=== PATIENT | female | born 1970 | race Asian ===

== ENCOUNTER 2021-05-25 08:27 | Emergency (ER) | payer OTHER ==
[~2021-05-25] VITALS: Ht 152.4 cm; Wt 49.9 kg
[2021-05-25 09:11] LABS: Basophils # (auto) 0 10 ^3/uL (0-0.2); Basophils % (auto) 0.5 % (0.0-2.0); Eosinophils # (auto) 0.1 10 ^3/uL (0-0.8); Eosinophils % (auto) 2.7 % (0.0-7.0); Hematocrit 42.7 % (36.0-46.0); Hemoglobin 14.9 g/dL (12.2-16.2); Lymphocytes # (auto) 1.5 10 ^3/uL (0.4-5.4); Mean Corpuscular Hemoglobin 31.1 pg (28.0-32.0); Mean Corpuscular Volume 88.8 fL (80.0-100.0); Monocytes # (auto) 0.3 10 ^3/uL (0-1.3); Monocytes % (auto) 7.3 % (0.0-12.0); Neutrophils # (auto) 2.1 10 ^3/uL (1.6-8.6); Neutrophils % (auto) 51.5 % (37.0-80.0); Red Cell Distribution Width 12.5 % (11.8-14.3)
[2021-05-25 09:32] LABS: Albumin 3.7 g/dL (3.4-5.0); BUN/Creatinine Ratio 17.3; Calcium 8.7 mg/dL (8.5-10.1); Potassium 3.9 mmol/L (3.5-5.1)
[2021-05-25 09:37] LABS: Total Protein 7.2 g/dL (6.4-8.2)
[2021-05-25 10:55] LABS: Urine Bacteria FEW /hpf (None Seen); Urine Blood Negative /uL (Negative); Urine Specific Gravity 1.015 (1.001-1.035); Urine WBC 45 /hpf (0 - 5)
[2021-05-25 11:30] VITALS: BP 125/73
[2021-05-25] MEDS ORDERED: NITR-87 PO (12:49)
== END 2021-05-25 13:42 | disposition home or self-care (01) ==
LOC: ER 08:27
DX: N39.0 Urinary tract infection, site not specified (principal); F41.9 Anxiety disorder, unspecified
CPT/HCPCS: 36415; 71045; 80053; 81001; 83880; 84484; 85025; 93005

== ENCOUNTER 2025-02-13 08:20 | Inpatient (IN) | payer OTHER ==
[~2025-02-13] VITALS: Ht 152.4 cm; Wt 50.2 kg
[~2025-02-13 08:20] MED LIST: NITR-87 PO
--- NOTE | 2025-02-13 09:36 | ED.PDOC ---
History of Present Illness HPI Comments 55-year-old female BIBA with the chief complaint of N/V. Patient has a sudden onset of nausea and vomiting and dizziness with the moving this morning and when EMS arrived on scene the patient was given 4 mg of Zofran via IV. EMS state that the patient had one episode of emesis in route. Patient has a poor historian. Denies any other symptoms at this time. Denies chills, fever, /D, SOB, CP. No other associated symptoms, modifiers, recent injuries or sick contacts present at this time. 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: 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 History Family History Family History: Reviewed,noncontributory to illness, Unknown Social History Smoker: Non-Smoker Alcohol: Denies ETOH Use Drugs: Denies Drug Use Lives In: Home Constitutional: denies: chills, diaphoresis, fatigue, fever, malaise, sweats, weakness, others EENTM: denies: blurred vision, double vision, ear bleeding, ear discharge, ear drainage, ear pain, ear ringing, eye pain, eye redness, hearing loss, mouth pain, mouth swelling, nasal discharge, nose bleeding, nose congestion, nose pain, photophobia, tearing, throat pain, throat swelling, voice changes, others Respiratory: denies: cough, hemoptysis, orthopnea, SOB at rest, shortness of breath, SOB with excertion, stridor, wheezing, others Cardiovascular: denies: chest pain, dizzy spells, diaphoresis, Dyspnea on exertion, edema, irregular heart beat, left arm pain, lightheadedness, palpitations, PND, syncope, others Gastrointestinal: reports: nausea, vomiting; denies: abdomen distended, abdominal pain, blood streaked bowels, constipated, diarrhea, dysphagia, difficulty swallowing, hematemesis, melena, poor appetite, poor fluid intake, rectal bleeding, rectal pain, others Genitourinary: denies: abnormal vagina bleeding, burning, dyspareunia, dysuria, flank pain, frequency, hematuria, incontinence, pain, , vagina discharge, urgency, others Neurological: reports: dizziness; denies: fainting, headache, left sided numbness, left sided weakness, numbness, paresthesia, pre-existing deficit, right sided numbness, right sided weakness, seizure, speech problems, tingling, tremors, weakness, others Musculoskeletal: denies: back pain, gout, joint pain, joint swelling, muscle pain, muscle stiffness, neck pain, others Integumetry: denies: bruises, change in color, change in hair/nails, dryness, laceration, lesions, lumps, rash, wounds, others Allergic/Immunocompromised: denies: Difficulty Healing, Frequent Infections, Hives, Itching, others Hematologic/Lymphatic: denies: anemia, blood clots, easy bleeding, easy bruising, swollen glands, others Endocrine: denies: excessive hunger, excessive sweating, excessive thirst, excessive urination, flushing, intolerance to cold, intolerance to heat, unexplained weight gain, unexplained weight loss, others Psychiatric: denies: anxiety, bipolar disorder, depression, hopeless, panic disorder, schizophrenia, sleepless, suicidal, others All Other Systems: Reviewed and Negative Physical Exam Exam Comments Appears uncomfortable General Appearance: No Apparent Distress, Normal HEENT: Normal ENT Inspection, Pharynx Normal, TMs Normal Neck: Full Range of Motion, Non-Tender, Normal, Normal Inspection Respiratory: Chest Non-Tender, Lungs Clear, No Accessory Muscle Use, No Respiratory Distress, Normal Breath Sounds Cardiovascular: No Edema, No JVD, No Murmur, No Gallop, Normal Peripheral Pulses, Regular Rate/Rhythm Breast Exam: Deferred Gastrointestinal: No Organomegaly, Non Tender, No Pulsatile Mass, Normal Bowel Sounds, Soft Genitalia: Deferred Pelvic: Deferred Rectal: Deferred Extremities: No calf tenderness, Normal capillary refill, Normal inspection, Normal range of motion, Non-tender, No pedal edema Musculoskeletal : Apperance: Normal Neurologic: Alert, label drier II-XII nml as Tested, No Motor Deficits, Normal Affect, Normal Mood, No Sensory Deficits Cerebellar Function: Normal Reflexes: Normal Skin: Dry, Normal Color, Warm Lymphatic: No Adenopathy Was a procedure done? Was a procedure done?: No EKG EKG : Pulse Rate (adult): 60 Peck: Normal Cardiac Rhythm: NSR Block: None Hypertrophy: None ST: Normal Differential Dx Considerations may include: ACS, CVA, viral syndrome, electrolyte abnormalities, infectious etiology, acute appendicitis, gastritis X-Ray, Labs, Meds, VS Vital Signs Date Time Temp Pulse Resp B/P (MAP) Pulse Ox O2 Delivery O2 Flow Rate FiO2 02/13/25 11:07 98.2 63 16 110/64 (79) 98 98.2 02/13/25 10:20 60 02/13/25 09:36 60 02/13/25 09:20 60 02/13/25 09:03 62 18 99 Room Air 02/13/25 09:03 97.7 62 18 127/74 (91) 99 97.7 02/13/25 08:25 98.2 63 16 153/67 97 98.2 Lab Test 02/13/25 09:49 Range/Units White Blood Count 9.7 4.4-10.8 10^3/uL Red Blood Count 4.71 4.0-5.20 10^6/uL Hemoglobin 14.5 12.2-16.2 g/dL Hematocrit 42.5 36.0-46.0 % Mean Corpuscular Volume 90.2 80.0-100.0 fL Mean Corpuscular Hemoglobin 30.7 28.0-32.0 pg Mean Corpuscular Hemoglobin Concent 34.1 32.0-36.0 g/dL Red Cell Distribution Width 12.8 11.8-14.3 % Platelet Count 230 140-450 10^3/uL Mean Platelet Volume 8.0 6.9-10.8 fL Neutrophils (%) (Auto) 87.0 H 37.0-80.0 % Lymphocytes (%) (Auto) 10.3 10.0-50.0 % Monocytes (%) (Auto) 2.2 0.0-12.0 % Eosinophils (%) (Auto) 0.1 0.0-7.0 % Basophils (%) (Auto) 0.4 0.0-2.0 % Neutrophils # (Auto) 8.4 1.6-8.6 10 ^3/uL Lymphocytes # (Auto) 1.0 0.4-5.4 10 ^3/uL Monocytes # (Auto) 0.2 0-1.3 10 ^3/uL Eosinophils # (Auto) 0 0-0.8 10 ^3/uL Basophils # (Auto) 0 0-0.2 10 ^3/uL Nucleated Red Blood Cells 0.0 % Sodium Level 143 136-145 mmol/L Potassium Level 3.8 3.5-5.1 mmol/L Chloride Level 105 98-107 mmol/L Carbon Dioxide Level 27 20-31 mmol/L Anion Gap 11 5-15 Blood Urea Nitrogen 6 L 9-23 mg/dL Creatinine 0.75 0.550-1.02 mg/dL Glomerular Filtration Rate Calc 93 >90 mL/min BUN/Creatinine Ratio 8.0 L 10.0-20.0 Serum Glucose 122 H 74-106 mg/dL Lactic Acid Level 1.7 0.4-2.0 mmol/L Calcium Level 9.6 8.7-10.4 mg/dL Total Bilirubin 1.2 H 0.2-1.0 mg/dL Aspartate Amino Transferase (AST) 22 13-40 U/L Alanine Aminotransferase (ALT) 23 7-40 U/L Alkaline Phosphatase 100 46-116 U/L Troponin I High Sensitivity < 3 L </=34 ng/L Total Protein 7.5 5.7-8.2 g/dL Albumin 4.5 3.2-4.8 g/dL Lipase 32 12-53 U/L Time of 1ST Reevaluation: 10:00 Reevaluation 1ST: Unchanged Patient Education/Counseling: Diagnosis, Treatment, Prognosis Family Education/Counseling: No Family Present SEPSIS Sepsis Screen Date sepsis recognized/suspect: Feb 13, 2025 Time Sepsis recognized/suspect: 826 Recent Procedure: No On Antibiotic Therapy: No Respiratory Rate >20: No Heart Rate >90: No Temp<36 C (96.8 F) or >38.3 C: No SBP <90 or MAP <65 mmHG: No New Acute Mental Status Change: No Is the patient on CPAP, BIPAP,: No Physician Orders Urinalysis (02/13/25 08:58) Chest Portable (02/13/25 08:58) Blood Culture (02/13/25 08:58) Ct Ab Pel With Iv Con Only (02/13/25 08:58) Troponin-I Hs (02/13/25 09:58) Troponin-I Hs (02/13/25 11:58) Electrocardigram (02/13/25 11:58) Cefazolin Ancef (02/13/25 12:45) Metronidazole Ivpb Flagyl (02/13/25 12:45) Morphine Sulfate Injection (02/13/25 12:45) NS (02/13/25 12:45) Ondansetron Hcl (Zofran) (02/13/25 12:45) Vital Signs Date Time Temp Pulse Resp B/P (MAP) Pulse Ox O2 Delivery O2 Flow Rate FiO2 02/13/25 11:07 98.2 63 16 110/64 (79) 98 98.2 02/13/25 10:20 60 02/13/25 09:36 60 02/13/25 09:20 60 02/13/25 09:03 62 18 99 Room Air 02/13/25 09:03 97.7 62 18 127/74 (91) 99 97.7 02/13/25 08:25 98.2 63 16 153/67 97 98.2 Laboratory Tests Test 02/13/25 09:49 Lactic Acid Level 1.7 mmol/L (0.4-2.0) White Blood Count 9.7 10^3/uL (4.4-10.8) Departure 1 Departure Time of Disposition: 12:37 (Patient presented with abdominal pain that was concerning for possible appendicits, gastritis, cholecystitis, colitis, gastroenteritis, sbo, or orther possible surgical emergency. Data: 1. I ordered and reviewed the result of at least 3 labs including a CBC, BMP, and Urinalysis. 2. I independently interpreted the following tests: CT Abdomen and Pelvis is concerning for diffuse colitis .Risk:This patient has a high risk of morbidity due to further diagnostic testing or treatment and may suffer from an acute abdominal process disorder. Workup reveals diffuse colitis and patient should be admitted for further workup. and possible expert consultation. ) Impression: Primary Impression: Colitis Additional Impression: Intractable abdominal pain Disposition: ADMITTED INPATIENT Admit to: Med Surg Condition: Guarded Critical Care Note Critical Care Time?: Yes Critical care comment: Intractable abdominal pain Authorized and Performed by: Mina Centeno MD Total critical care time: Approximately 39 minutes Due to a high probability of clinically significant, life threatening deterioration, the patient required my highest level of preparedness to intervene emergently and I personally spent this critical care time directly and personally managing the patient. This critical care time included obtaining a history; examining the patient; pulse oximetry; ordering and review of studies; arranging urgent treatment with development of a management plan; evaluation of patient's response to treatment; frequent reassessment; and, discussions with other providers. This critical care time was performed to assess and manage the high probability of imminent, life-threatening deterioration that could result in multi-organ failure. It was exclusive of separately billable procedures and treating other patients and teaching time. Please see my other sections and the rest of the note for further information on patient assessment and treatment. Stability Stability form required: No I personally scribed for MINA CENTENO MD ([email or web address]) on 02/13/25 at 09:36. Electronically submitted by Braulio Church ([email or web address]). MINA CENTENO MD Feb 13, 2025 09:36
[2025-02-13] MEDS: IOHEXOL 300 MG/ML 100ML BOTTLE IJ ONE (10:19)
[2025-02-13 10:21] LABS: Hematocrit 42.5 % (36.0-46.0); Hemoglobin 14.5 g/dL (12.2-16.2); Mean Corpuscular Hemoglobin 30.7 pg (28.0-32.0); Mean Corpuscular Volume 90.2 fL (80.0-100.0); Nucleated Red Blood Cells % 0.0 %
--- NOTE | 2025-02-13 10:22 | ECG ---
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
[2025-02-13 10:54] LABS: Alanine Aminotransferase 23 U/L (7-40); Albumin 4.5 g/dL (3.2-4.8); Alkaline Phosphatase 100 U/L (46-116); Anion Gap 11 (5-15); BUN/Creatinine Ratio 8.0 (10.0-20.0); Calcium 9.6 mg/dL (8.7-10.4); Carbon Dioxide 27 mmol/L (20-31); Chloride 105 mmol/L (98-107); Potassium 3.8 mmol/L (3.5-5.1); Sodium 143 mmol/L (136-145); Total Protein 7.5 g/dL (5.7-8.2)
[2025-02-13 10:55] LABS: Bilirubin, Total 1.2 mg/dL (0.2-1.0)
[2025-02-13 10:57] LABS: Blood Urea Nitrogen 6 mg/dL (9-23); Glucose 122 mg/dL (74-106)
[2025-02-13 11:11] LABS: Lipase 32 U/L (12-53)
--- NOTE | 2025-02-13 11:59 | DVH ---
CLINICAL INFORMATION: Epigastric abdominal pain. TECHNIQUE: Axial CT images of the abdomen and pelvis were obtained after the uneventful administration of 100 mL Omnipaque 300 IV contrast. Coronal and sagittal reformatted images were obtained, reviewed, and stored. All CT scans at this medical facility are performed using dose modulation techniques as appropriate to a performed exam including the following: Automated exposure control was utilized; adjustment of the MA and/or KV according to patient size; and use of iterative reconstruction technique. CTDIvol = 6.05 mGy DLP = 323.71 mGy-cm COMPARISON: None FINDINGS: Lung bases: Atelectasis in the lung bases. Bilateral breast prostheses. Curvilinear density in the lateral aspect of the left breast prosthesis is of uncertain etiology, not well evaluated on CT. Liver: Hepatic steatosis. Biliary: Cholecystectomy. Common bile duct measures up to 0.9 cm, mildly dilated, although may be seen after cholecystectomy due to reservoir effect. Spleen: Unremarkable. Pancreas: Unremarkable. No inflammatory changes, ductal dilatation, or mass identified. Adrenal glands: Unremarkable. No mass. Kidneys: No hydronephrosis or mass. Aorta/Vascular: No aneurysm or significant calcification. Lymph Nodes: No mass or lymphadenopathy. Bowel/mesentery: No small bowel obstruction. No free air or free fluid. Appendix is visualized and appears unremarkable. There are areas of wall thickening and vascular engorgement throughout the colon, which may be seen with mild colitis in the appropriate clinical setting. No significant inflammatory stranding is seen. Moderate stool in the colon. Pelvic organs: Grossly unremarkable. Bladder: Unremarkable. No mass. Abdominal wall: No mass or hernia. Bones: No acute fracture or focal intraosseous lesion. IMPRESSION: 1. Areas of wall thickening and vascular engorgement are seen in the colon, which are nonspecific, but may be seen with mild colitis in the appropriate clinical setting. No significant inflammatory stranding is seen. Correlate with clinical findings. 2. Hepatic steatosis. 3. Mildly dilated common bile duct, although may be seen after cholecystectomy due to reservoir effect. Correlate with clinical findings. 4. Abnormal curvilinear densities in the lateral aspect of the left breast prosthesis, not well evaluated on CT. Correlate with clinical findings. If there is clinical concern for implant rupture, nonemergent MRI could be obtained. 5. Additional findings as described above.
--- NOTE | 2025-02-13 12:04 | DVH ---
CHEST RADIOGRAPH INDICATION: epigastric pain TECHNIQUE: Single frontal view of the chest was obtained COMPARISON: CHEST PORTABLE on DOS: 05/25/21, CXRP on DOS: 05/25/21 FINDINGS: Lines and Tubes: None Lungs: No focal consolidation. Pleura: No effusion. No pneumothorax. Cardiomediastinal contours: Unremarkable Bones: No acute osseous abnormality. IMPRESSION: 1. No acute cardiopulmonary disease.
--- NOTE | 2025-02-13 12:17 | ECG ---
[facility] Test Date: 2025-02-13 Test Time: 12:15:29 Pat Name: EL MALDONADO Department: ER Room: 0217 Gender: F Bond Clerk: BEATRICE : 1970 Requested By: MINA CRAIG Order Number: [id number] Reading MD: Marquez Olson Measurements Intervals [place] Rate: 62 P: 71 [place]: 142 QRS: 77 QRSD: 86 T: 80 QT: 601 QTc: 611 Interpretive Statements Sinus rhythm Nonspecific T abnormalities, lateral leads Prolonged QT interval Baseline wander in lead(s) I,III,aVL,V1,V2,V3,V4,V5,V6 Electronically Signed On 02-17-2025 8:35:47 PST by Marquez Olson Please click the below link to view image of tracing.
[2025-02-13] MEDS: ceFAZolin 2 GM/D5W50ml 50 ML IV ONE (13:07)
[2025-02-13] MEDS: SODIUM CHLORIDE 0.9% 1,000 ML IV ONE (13:07)
[2025-02-13] MEDS: ONDANSETRON HCL 4 MG/2 ML VIAL IV ONE (13:09)
[2025-02-13] MEDS: MORPHINE SULFATE 4 MG/ML SYR/VIAL IV ONE (13:14)
[2025-02-13] MEDS ORDERED: ACETAMINOPHEN 325 MG TAB PO PRN (13:15)
--- NOTE | 2025-02-13 13:16 | DVHHP2 ---
History of Present Illness Reason for Visit: Abdominal pain, nausea and vomiting History of Present Illness The patient is a 55-year-old female with past medical history significant for cholecystectomy who presents to the emergency department [facility] with left lower quadrant abdominal pain that began last night. The pain is associated with nausea and vomiting. She denies fever, hematemesis, constipation, diarrhea, melena, or hematochezia. In the ED, CT abdomen and pelvis demonstrates areas of colonic wall thickening and vascular engorgement, which are nonspecific but may be seen with mild colitis. Additional findings include hepatitis take steatosis and a mild dilated common bile duct, which may be expected post cholecystectomy. Laboratory evaluation shows a total bilirubin of 1.2 mg/dL Past Medical History As stated in HPI Past Surgical History Cholecystectomy Family History Reviewed, non-contributory to the management of this case. Past Social History The patient lives at home, denies smoking, alcohol or illicit drugs abuse. Review of Systems Constitutional: Yes: Malaise; No: Fever, Chills, Sweats, Weakness, Other Eyes: No: Pain, Vision change, Conjunctivae inflammation, Eyelid inflammation, Other, Redness ENT: No: Ear pain, Ear discharge, Nose pain, Nose discharge, Nose congestion, Mouth pain, Mouth swelling, Throat pain, Throat swelling, Other Respiratory: No: Cough, Dry, Shortness of breath, SOB with excertion, Wheezing, Hemoptysis, Pleuritic Pain, Sputum, Wheezing, Other Cardiovascular: No: Chest Pain, Palpitations, Orthopnea, Paroxysmal Noc. Dyspnea, Edema, Lt Headedness, Other Gastrointestinal: Nausea, Vomiting, Abdominal Pain; No: Diarrhea, Constipation, Melena, Hematochezia, Other Genitourinary: No Dysuria, No Frequency, No Incontinence, No Hematuria, No Retention, No Other Musculoskeletal: No: other, neck pain, shoulder pain, arm pain, back pain, hand pain, leg pain, foot pain Neurological: No: Weakness, Numbness, Incoordination, Change in speech, Confusion, Seizures, Other Allergies: Coded Allergies: NO KNOWN ALLERGIES (Unverified , 05/25/21) Exam Vital Signs Vital Signs Date Time Temp Pulse Resp B/P (MAP) Pulse Ox O2 Delivery O2 Flow Rate FiO2 02/13/25 13:14 68 19 112/64 02/13/25 11:07 98.2 98 98.2 02/13/25 09:03 Room Air General Appearance: Alert, Oriented X3, Cooperative, mild distress HEENT: PERRLA, EOMI Respiratory: Clear to auscultation, Normal air movement Cardiovascular: Regular rate, Normal S1, Normal S2 Abdominal: Normal bowel sounds, Soft, Other (Mild tenderness to left lower quadrant) Extremities: No clubbing, No cyanosis, No edema Skin: No rashes, No breakdown Neuro: Normal gait, Normal speech Labs/Xrays Labs Test 02/13/25 12:46 02/13/25 09:49 Range/Units White Blood Count 9.7 4.4-10.8 10^3/uL Red Blood Count 4.71 4.0-5.20 10^6/uL Hemoglobin 14.5 12.2-16.2 g/dL Hematocrit 42.5 36.0-46.0 % Mean Corpuscular Volume 90.2 80.0-100.0 fL Mean Corpuscular Hemoglobin 30.7 28.0-32.0 pg Mean Corpuscular Hemoglobin Concent 34.1 32.0-36.0 g/dL Red Cell Distribution Width 12.8 11.8-14.3 % Platelet Count 230 140-450 10^3/uL Mean Platelet Volume 8.0 6.9-10.8 fL Neutrophils (%) (Auto) 87.0 H 37.0-80.0 % Lymphocytes (%) (Auto) 10.3 10.0-50.0 % Monocytes (%) (Auto) 2.2 0.0-12.0 % Eosinophils (%) (Auto) 0.1 0.0-7.0 % Basophils (%) (Auto) 0.4 0.0-2.0 % Neutrophils # (Auto) 8.4 1.6-8.6 10 ^3/uL Lymphocytes # (Auto) 1.0 0.4-5.4 10 ^3/uL Monocytes # (Auto) 0.2 0-1.3 10 ^3/uL Eosinophils # (Auto) 0 0-0.8 10 ^3/uL Basophils # (Auto) 0 0-0.2 10 ^3/uL Nucleated Red Blood Cells 0.0 % Sodium Level 143 136-145 mmol/L Potassium Level 3.8 3.5-5.1 mmol/L Chloride Level 105 98-107 mmol/L Carbon Dioxide Level 27 20-31 mmol/L Anion Gap 11 5-15 Blood Urea Nitrogen 6 L 9-23 mg/dL Creatinine 0.75 0.550-1.02 mg/dL Glomerular Filtration Rate Calc 93 >90 mL/min BUN/Creatinine Ratio 8.0 L 10.0-20.0 Serum Glucose 122 H 74-106 mg/dL Lactic Acid Level 1.7 0.4-2.0 mmol/L Calcium Level 9.6 8.7-10.4 mg/dL Total Bilirubin 1.2 H 0.2-1.0 mg/dL Aspartate Amino Transferase (AST) 22 13-40 U/L Alanine Aminotransferase (ALT) 23 7-40 U/L Alkaline Phosphatase 100 46-116 U/L Total Protein 7.5 5.7-8.2 g/dL Albumin 4.5 3.2-4.8 g/dL Lipase 32 12-53 U/L PROCEDURE(s): ABPLIV - CT AB PEL WITH IV CON ONLY REASON: epigastric pain ORDER NUMBER(s): [id number], ACCESSION NUMBER(s): [id number] CLINICAL INFORMATION: Epigastric abdominal pain. TECHNIQUE: Axial CT images of the abdomen and pelvis were obtained after the uneventful administration of 100 mL Omnipaque 300 IV contrast. Coronal and sagittal reformatted images were obtained, reviewed, and stored. All CT scans at this medical facility are performed using dose modulation techniques as appropriate to a performed exam including the following: Automated exposure control was utilized; adjustment of the MA and/or KV according to patient size; and use of iterative reconstruction technique. CTDIvol = 6.05 mGy DLP = 323.71 mGy-cm COMPARISON: None FINDINGS: Lung bases: Atelectasis in the lung bases. Bilateral breast prostheses. Curvilinear density in the lateral aspect of the left breast prosthesis is of uncertain etiology, not well evaluated on CT. Liver: Hepatic steatosis. Biliary: Cholecystectomy. Common bile duct measures up to 0.9 cm, mildly dilated, although may be seen after cholecystectomy due to reservoir effect. Spleen: Unremarkable. Pancreas: Unremarkable. No inflammatory changes, ductal dilatation, or mass identified. Adrenal glands: Unremarkable. No mass. Kidneys: No hydronephrosis or mass. Aorta/Vascular: No aneurysm or significant calcification. Lymph Nodes: No mass or lymphadenopathy. Bowel/mesentery: No small bowel obstruction. No free air or free fluid. Appendix is visualized and appears unremarkable. There are areas of wall thickening and vascular engorgement throughout the colon, which may be seen with mild colitis in the appropriate clinical setting. No significant inflammatory stranding is seen. Moderate stool in the colon. Pelvic organs: Grossly unremarkable. Bladder: Unremarkable. No mass. Abdominal wall: No mass or hernia. Bones: No acute fracture or focal intraosseous lesion. IMPRESSION: 1. Areas of wall thickening and vascular engorgement are seen in the colon, which are nonspecific, but may be seen with mild colitis in the appropriate clinical setting. No significant inflammatory stranding is seen. Correlate with clinical findings. 2. Hepatic steatosis. 3. Mildly dilated common bile duct, although may be seen after cholecystectomy due to reservoir effect. Correlate with clinical findings. 4. Abnormal curvilinear densities in the lateral aspect of the left breast prosthesis, not well evaluated on CT. Correlate with clinical findings. If there is clinical concern for implant rupture, nonemergent MRI could be obtained. 5. Additional findings as described above. IS Sepsis Screen Date sepsis recognized/suspect: Feb 13, 2025 Time Sepsis recognized/suspect: 826 Recent Procedure: No On Antibiotic Therapy: No Respiratory Rate >20: No Heart Rate >90: No Temp<36 C (96.8 F) or >38.3 C: No SBP <90 or MAP <65 mmHG: No New Acute Mental Status Change: No Is the patient on CPAP, BIPAP,: No Physician Orders Urinalysis (02/13/25 08:58) Chest Portable (02/13/25 08:58) Blood Culture (02/13/25 08:58) Ct Ab Pel With Iv Con Only (02/13/25 08:58) Troponin-I Hs (02/13/25 09:58) Troponin-I Hs (02/13/25 11:58) Electrocardigram (02/13/25 11:58) Cefazolin 2 Gm/[id number] (Ancef) (02/13/25 12:45) Metronidazole 500mg/100ml (Flagyl 500mg/ (02/13/25 12:45) Sodium Chloride 0.9% (02/13/25 12:45) Vital Signs Date Time Temp Pulse Resp B/P (MAP) Pulse Ox O2 Delivery O2 Flow Rate FiO2 02/13/25 13:14 68 19 112/64 02/13/25 11:07 98.2 63 16 110/64 (79) 98 98.2 02/13/25 10:20 60 02/13/25 09:36 60 02/13/25 09:20 60 02/13/25 09:03 62 18 99 Room Air 02/13/25 09:03 97.7 62 18 127/74 (91) 99 97.7 02/13/25 08:25 98.2 63 16 153/67 97 98.2 Laboratory Tests Test 02/13/25 09:49 Lactic Acid Level 1.7 mmol/L (0.4-2.0) White Blood Count 9.7 10^3/uL (4.4-10.8) Medications Medications Dose Ordered Sig/Kenisha Route Start Time Stop Time Status Last Admin Dose Admin Cefazolin Sodium/ Dextrose 50 ml @ 50 mls/hr ONCE ONCE IV 02/13/25 12:45 02/13/25 13:44 02/13/25 13:07 50 MLS/HR Metronidazole 100 ml @ 100 mls/hr ONCE ONCE IV 02/13/25 12:45 02/13/25 13:44 02/13/25 13:09 100 MLS/HR Morphine Sulfate 4 mg ONCE ONCE IV 02/13/25 12:45 02/13/25 12:46 DC 02/13/25 13:14 4 MG Ondansetron HCl 4 mg ONCE ONCE IV 02/13/25 12:45 02/13/25 12:46 DC 02/13/25 13:09 4 MG Sodium Chloride 1,000 ml @ 1,000 mls/hr Q1H ONCE IV 02/13/25 12:45 02/13/25 13:44 02/13/25 13:07 1,000 MLS/HR Assessment/Plan Assessment/Plan Acute intractable abdominal pain Left lower quadrant abdominal pain likely secondary to mild colitis based on CT findings Nausea and vomiting s/p cholecystectomy * Admit to medical/surgical unit * Empiric antibiotic * Check for UA * Blood and urine culture * Antiemetics * IV fluid for hydration * Clear liquid diet and advance as tolerated * Pain control Liver and biliary findings * Monitor liver function tests DVT prophylaxis Medical plan discussed with patient and son Plan discussed with: Patient Date of Service: Feb 13, 2025 Billing Provider: DINESH DAMICO Common Visit Codes: [id number] INP/OBS CARE (MOD) DINESH DAMICO Feb 13, 2025 13:16
[2025-02-13] MEDS ORDERED: MORPHINE SULFATE 4 MG/ML SYR/VIAL IV PRN (13:30)
[2025-02-13] MEDS: SODIUM CHLORIDE 0.9% 1,000 ML IV SCH (15:31)
[2025-02-13 16:46] VITALS: BP 128/73; PULSE 68; RESP 18; TEMP 97.3; O2SAT 98
[2025-02-13 18:23] LABS: Urine Protein, UAD Negative (Negative)
[2025-02-13 20:00] VITALS: PULSE 66; RESP 18; O2SAT 98
[2025-02-13 21:00] VITALS: BP 127/78; PULSE 66; RESP 18; TEMP 98; O2SAT 98
[2025-02-14 05:00] VITALS: BP 108/65; PULSE 63; RESP 16; TEMP 98.1; O2SAT 96
[2025-02-14 06:48] LABS: Hematocrit 37.0 % (36.0-46.0); Hemoglobin 12.4 g/dL (12.2-16.2); Mean Corpuscular Hemoglobin 30.2 pg (28.0-32.0); Mean Corpuscular Volume 90.1 fL (80.0-100.0); Nucleated Red Blood Cells % 0.1 %
[2025-02-14 07:14] LABS: Alanine Aminotransferase 24 U/L (7-40); Albumin 3.5 g/dL (3.2-4.8); Alkaline Phosphatase 79 U/L (46-116); Anion Gap 10 (5-15); BUN/Creatinine Ratio 10.0 (10.0-20.0); Carbon Dioxide 27 mmol/L (20-31); Glucose 82 mg/dL (74-106); Sodium 144 mmol/L (136-145); Total Protein 6.1 g/dL (5.7-8.2)
[2025-02-14 07:22] LABS: Bilirubin, Total 1.3 mg/dL (0.2-1.0); Blood Urea Nitrogen 7 mg/dL (9-23); Calcium 8.6 mg/dL (8.7-10.4); Chloride 107 mmol/L (98-107); Potassium 3.5 mmol/L (3.5-5.1)
[2025-02-14 08:50] VITALS: BP 117/65; PULSE 57; RESP 15; TEMP 98.2; O2SAT 100
[2025-02-14] MEDS: ENOXAPARIN SOD 40 MG/0.4 ML SYRINGE SC SCH (09:03)
--- NOTE | 2025-02-14 09:40 | ECG ---
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
[2025-02-14 12:41] VITALS: BP 112/70; PULSE 63; RESP 15; TEMP 98.1; O2SAT 98
[2025-02-14] MEDS: POTASSIUM CHLORIDE 40 MEQ in D5W 5% 1,000 ML IV SCH (13:45)
--- NOTE | 2025-02-14 13:45 | DVHPN2 ---
Subjective Patient states abdominal pain has improved. Reviewed: Care Plan, H&P, Labs, Medications, Previous Orders Changes from previous H/P or p: No Changes General: Per HPI Eyes: No Pain, No Vision change, No Conjunctivae inflammation, No Eyelid inflammation, No Other, No Redness ENT: No Ear pain, No Ear discharge, No Nose pain, No Nose discharge, No Nose congestion, No Mouth pain, No Mouth swelling, No Throat pain, No Throat swelling, No Other Cardiovascular: No Chest Pain, No Palpitations, No Orthopnea, No Paroxysmal Noc. Dyspnea, No Edema, No Lt Headedness, No Other Respiratory: No Cough, No Dry, No Shortness of breath, No SOB with excertion, No Wheezing, No Hemoptysis, No Pleuritic Pain, No Sputum, No Other Gastrointestinal: Nausea, Vomiting, Abdominal Pain; No Diarrhea, No Constipation, No Melena, No Hematochezia, No Other Genitourinary: No Dysuria, No Frequency, No Incontinence, No Hematuria, No Retention, No Other Musculoskeletal: No other, No neck pain, No shoulder pain, No arm pain, No back pain, No hand pain, No leg pain, No foot pain Objective Vitals Vital Signs Date Time Temp Pulse Resp B/P (MAP) Pulse Ox O2 Delivery O2 Flow Rate FiO2 02/14/25 12:41 98.1 63 15 112/70 (84) 98 98.1 02/14/25 08:14 Room Air* 0 21 Intake/Output Intake and Output 02/14/25 07:00 Intake Total 2400 ml Balance 2400 ml Intake Oral 1200 ml IV Total 1200 ml # Voids 4 General Appearance: Alert, Oriented X3, Cooperative, mild distress HEENT: Atraumatic, PERRLA Lungs: Clear to auscultation, Normal air movement Cardiovascular: Normal S1, Normal S2 Abdomen: Normal bowel sounds, Soft, No tenderness, No hepatospenomegaly, No masses Genitourinary: No Apparent Abnormalities Back: Flank Tenderness, Midline Tenderness, Spinal Abnormalities Musculoskeletal: Normal sensory function, Normal motor function Extremities: No clubbing, No cyanosis Skin: Dry, Intact Psych/Mental Status: Mental status NL, Mood NL Medications Current Medications Medications Dose Ordered Sig/Kenisha Route Start Time Stop Time Status Last Admin Dose Admin Acetaminophen/ Hydrocodone Bitart 1 tab Q4HP PRN PO 02/13/25 13:15 Ondansetron HCl 4 mg Q4HP PRN IV 02/13/25 13:15 Enoxaparin Sodium 40 mg DAILY SC 02/14/25 10:00 02/14/25 09:03 40 MG Acetaminophen 650 mg Q6HP PRN PO 02/13/25 13:15 Morphine Sulfate 2 mg Q4HPRN PRN IV 02/13/25 13:30 Ceftriaxone Sodium 50 ml @ 100 mls/hr DAILY@09 IV 02/14/25 09:00 02/14/25 09:02 100 MLS/HR Metronidazole 100 ml @ 100 mls/hr Q8HR IV 02/13/25 22:00 02/14/25 06:20 100 MLS/HR Potassium Chloride 40 meq/ Dextrose 1,020 ml @ 75 mls/hr [id number] IV 02/14/25 13:45 02/15/25 03:20 UNV Laboratory Results Laboratory Tests 02/14/25 04:59 Chemistry Test 02/14/25 04:59 Albumin 3.5 g/dL (3.2-4.8) Calcium Level 8.6 mg/dL (8.7-10.4) L Total Protein 6.1 g/dL (5.7-8.2) LFT Test 02/14/25 04:59 Alanine Aminotransferase (ALT) 24 U/L (7-40) Alkaline Phosphatase 79 U/L (46-116) Aspartate Amino Transferase (AST) 21 U/L (13-40) Total Bilirubin 1.3 mg/dL (0.2-1.0) H Urinalysis Test 02/13/25 18:00 Urine Color Light-yellow (Yellow) Urine Clarity Clear (Clear) Urine pH 6.5 (5.0-9.0) Urine Specific [place] 1.044 (1.001-1.035) Urine Protein Negative (Negative) Urine Ketones 1+ (Negative) H Urine Blood Negative /uL (Negative) Urine Nitrite Negative (Negative) Urine Bilirubin Negative (Negative) Urine Urobilinogen Normal mg/dL (Negative) Urine Leukocyte Esterase Negative /uL (Negative) Urine RBC 3 /hpf (0 - 4) Urine Microscopic WBC 1 /HPF (0-5) Urine Squamous Epithelial Cells Few /hpf (<5) Urine Bacteria None seen /hpf (None Seen) Urine Glucose Normal mg/dL (Normal) Microbiology Microbiology Date/Time Source Procedure Growth Status 02/13/25 10:02 Blood Blood Culture - Preliminary NO GROWTH AFTER 24 HOURS OF INCUBATION. Resulted Labs and/or images reviewed: Labs reviewed by me, Image(s) reviewed by me Assessment/Plan Assessment/Plan Impression: -acute colitis -intractable nausea and vomiting Plan: -continue IV hydration -potassium replacement -continue IV antibiotic therapy: Rocephin, Flagyl -repeat labs in a.m. -reassess for discharge in a.m. Total time spent with patient discussing and formulating plan of care: 35 minutes. This medical document was created using an electronic medical record system with [employer] dictation system. Although this document has been carefully reviewed, there may still be some phonetic and typographical errors. These areas are purely typographical due to imperfections of the software programs, and do not reflect any compromise in the patient's medical care. Plan discussed with: Patient, Other (RN) My Orders Orders - IVAN NORMAN NP Procedure Category Date Status Time D5w 5% (Dextrose 5%) PHA 02/14/25 Logged W/Potassium Chlorid 13:45 Regular Diet DIET 02/14/25 Transmitted Dinner Date of Service: Feb 14, 2025 Billing Provider: IVAN NORMAN NP Common Visit Codes: [id number] INP/OBS CARE(HIGH) IVAN NORMAN NP Feb 14, 2025 13:45
--- NOTE | 2025-02-14 16:25 | MEDREC ---
[facility] ASP Intervention Section I [facility] ASP Intervention: Review courses of therapy (NO ROUTINE ABX S/P CHOLECYSTECTOMY IS RECOMMENDED UNLESS COMPLICATED OR HIGH-RISK (PERFORATION, CRITICALLY ILL, ). PLEASE CONSIDER D/C ANTIBIOTICS) [facility] RESIDENT Feb 14, 2025 16:25
[2025-02-14 17:12] VITALS: BP 121/76; PULSE 63; RESP 17; TEMP 98; O2SAT 96
[2025-02-14 20:00] VITALS: PULSE 68; RESP 18; O2SAT 97
[2025-02-14 21:00] VITALS: BP 97/60; PULSE 68; RESP 18; TEMP 98.1; O2SAT 97
[2025-02-15] VITALS (8 sets, daily range): BP systolic 0–154; BP diastolic 70–81; PULSE 54–78; RESP 15–18; TEMP 97.8–98.1; O2SAT 4–98
[2025-02-15] MEDS: HYDROcodone-ACET 5/325MG TAB PO PRN (10:15)
--- NOTE | 2025-02-15 11:14 | DVHDS2 ---
Discharge Summary Date of Admission Feb 13, 2025 at 13:13 Date of Discharge: Feb 15, 2025 Admitting Diagnosis Intractable abdominal pain Labs/Diagnostic Data: Laboratory Results Test 02/14/25 04:59 02/13/25 18:00 02/13/25 14:43 02/13/25 09:49 White Blood Count 6.9 10^3/uL (4.4-10.8) Red Blood Count 4.10 10^6/uL (4.0-5.20) Hemoglobin 12.4 g/dL (12.2-16.2) Hematocrit 37.0 % (36.0-46.0) Mean Corpuscular Volume 90.1 fL (80.0-100.0) Mean Corpuscular Hemoglobin 30.2 pg (28.0-32.0) Mean Corpuscular Hemoglobin Concent 33.5 g/dL (32.0-36.0) Red Cell Distribution Width 12.7 % (11.8-14.3) Platelet Count 220 10^3/uL (140-450) Mean Platelet Volume 8.1 fL (6.9-10.8) Neutrophils (%) (Auto) 64.1 % (37.0-80.0) Lymphocytes (%) (Auto) 27.0 % (10.0-50.0) Monocytes (%) (Auto) 8.2 % (0.0-12.0) Eosinophils (%) (Auto) 0.3 % (0.0-7.0) Basophils (%) (Auto) 0.4 % (0.0-2.0) Neutrophils # (Auto) 4.4 10 ^3/uL (1.6-8.6) Lymphocytes # (Auto) 1.9 10 ^3/uL (0.4-5.4) Monocytes # (Auto) 0.6 10 ^3/uL (0-1.3) Eosinophils # (Auto) 0 10 ^3/uL (0-0.8) Basophils # (Auto) 0 10 ^3/uL (0-0.2) Nucleated Red Blood Cells 0.1 % Sodium Level 144 mmol/L (136-145) Potassium Level 3.5 mmol/L (3.5-5.1) Chloride Level 107 mmol/L (98-107) Carbon Dioxide Level 27 mmol/L (20-31) Anion Gap 10 (5-15) Blood Urea Nitrogen 7 mg/dL (9-23) Creatinine 0.70 mg/dL (0.550-1.02) Glomerular Filtration Rate Calc 101 mL/min (>90) BUN/Creatinine Ratio 10.0 (10.0-20.0) Serum Glucose 82 mg/dL (74-106) Calcium Level 8.6 mg/dL (8.7-10.4) Total Bilirubin 1.3 mg/dL (0.2-1.0) Aspartate Amino Transferase (AST) 21 U/L (13-40) Alanine Aminotransferase (ALT) 24 U/L (7-40) Alkaline Phosphatase 79 U/L (46-116) Total Protein 6.1 g/dL (5.7-8.2) Albumin 3.5 g/dL (3.2-4.8) Urine Color Light-yellow (Yellow) Urine Clarity Clear (Clear) Urine pH 6.5 (5.0-9.0) Urine Specific [place] 1.044 (1.001-1.035) Urine Protein Negative (Negative) Urine Ketones 1+ (Negative) Urine Blood Negative /uL (Negative) Urine Nitrite Negative (Negative) Urine Bilirubin Negative (Negative) Urine Urobilinogen Normal mg/dL (Negative) Urine Leukocyte Esterase Negative /uL (Negative) Urine RBC 3 /hpf (0 - 4) Urine Microscopic WBC 1 /HPF (0-5) Urine Squamous Epithelial Cells Few /hpf (<5) Urine Bacteria None seen /hpf (None Seen) Urine Glucose Normal mg/dL (Normal) Troponin I High Sensitivity < 3 ng/L (</=34) Lactic Acid Level 1.7 mmol/L (0.4-2.0) Lipase 32 U/L (12-53) Other Laboratory Tests 02/14/25 04:59 Brief Hx & Hospital Course: History of Present Illness The patient is a 55-year-old female with past medical history significant for cholecystectomy who presents to the emergency department BIB with left lower quadrant abdominal pain that began last night. The pain is associated with nausea and vomiting. She denies fever, hematemesis, constipation, diarrhea, melena, or hematochezia. In the ED, CT abdomen and pelvis demonstrates areas of colonic wall thickening and vascular engorgement, which are nonspecific but may be seen with mild colitis. Additional findings include hepatitis take steatosis and a mild dilated common bile duct, which may be expected post cholecystectomy. Laboratory evaluation shows a total bilirubin of 1.2 mg/dL Course of hospitalization: Patient was given bowel rest, then advanced diet from clears to regular consistency. Patient was given IV antibiotic therapy with Rocephin and Flagyl. White blood cell count remained normal. Patient has remained afebrile. Patient's abdominal pain has resolved. Stools have returned to normal consistency. Patient will be discharged home and is instructed to follow up with her PCP in 1-2 weeks. At this time no antibiotics will be sent home at the time of being discharged. Physical examination General: Alert and Oriented x3. No acute distress. Well-nourished. Eyes: EOMI. Anicteric. HENT: Moist mucous membranes. Lungs: Clear to auscultation bilaterally. No accessory muscle use. Cardiovascular: Regular rate and rhythm. No murmur. No JVD. Abdomen: Soft, non-tender and non-distended. No palpable masses. Extremities: No edema. Non-tender. Skin: No rashes or lesions. Warm. Neurologic: No focal neurological deficits. CN II-XII grossly intact, but not individually tested. Psychiatric: Cooperative. Appropriate mood and affect. Total time spent with patient discussing and formulating plan of care: 35 minutes. This medical document was created using an electronic medical record system with [employer] dictation system. Although this document has been carefully reviewed, there may still be some phonetic and typographical errors. These areas are purely typographical due to imperfections of the software programs, and do not reflect any compromise in the patient's medical care. Condition at Discharge: Fair Final Diagnosis/Problems List Acute colitis Intractable nausea and vomiting Discharge Disposition: Home Discharge Instruct/Medications Diet: Regular Activity: No Restrictions, As Tolerated Follow Up/Referral: PCP in 1-2 weeks Medications: No new prescriptions Scheduled Nitrofurantoin Monohydrate Mac (Macrobid), 100 MG PO BID 36 Discharge Statement: "Patient was advised to return to the ER or call 911 if any headaches, dizziness, shortness of breath, chest pain, abdominal pain, bleeding, fevers, or worsening of medical condition. Patient was counseled about treatment plan, medications, possible side effects, patientverbalized understanding. All questions were answered to the best of my ability. This discharge took greater then 30 minutes in planning, reviewing documentation, counseling the patient, and discussing with other team members." ASSESSMENT ASSESSMENT Assessment Colitis Date of Service: Feb 15, 2025 Billing Provider: IVAN NORMAN NP Common Visit Codes: [id number] DISCH DAY >30min IVAN NORMAN NP Feb 15, 2025 11:14
[2025-02-15] MEDS: SODIUM CHLORIDE 0.9% 1,000 ML IV SCH (14:00)
[2025-02-15] MEDS: PANTOPRAZOLE 40 MG/10 ML VIAL INJ IV ONE (14:00)
[2025-02-15] MEDS: ONDANSETRON HCL 4 MG/2 ML VIAL IV PRN ×2 (14:53→21:58)
[2025-02-15 15:19] LABS: Chloride 104 mmol/L (98-107); Potassium 3.7 mmol/L (3.5-5.1); Sodium 145 mmol/L (136-145)
[2025-02-15 15:20] LABS: Anion Gap 11 (5-15); Calcium 8.9 mg/dL (8.7-10.4); Carbon Dioxide 30 mmol/L (20-31)
[2025-02-15 15:25] LABS: BUN/Creatinine Ratio 9.5 (10.0-20.0)
[2025-02-15 15:28] LABS: Blood Urea Nitrogen 8 mg/dL (9-23); Glucose 111 mg/dL (74-106)
--- NOTE | 2025-02-15 16:12 | DVHPN2 ---
Progress Note Objective vital signs Vital Sign Date Time Temp Pulse Resp B/P (MAP) Pulse Ox O2 Delivery O2 Flow Rate FiO2 02/15/25 13:00 97.9 64 16 115/74 (88) 96 97.9 02/15/25 08:00 Room Air* 0 21 Total Intake and Output 02/14/25 02/14/25 02/15/25 15:00 23:00 07:00 Intake Total 150 ml 1150 ml 500 ml Balance 150 ml 1150 ml 500 ml medications Current Medications Medications Dose Ordered Sig/Kenisha Route Start Time Stop Time Status Last Admin Dose Admin Acetaminophen/ Hydrocodone Bitart 1 tab Q4HP PRN PO 02/13/25 13:15 02/15/25 14:52 1 TAB Ondansetron HCl 4 mg Q4HP PRN IV 02/13/25 13:15 02/15/25 14:53 4 MG Enoxaparin Sodium 40 mg DAILY SC 02/14/25 10:00 02/15/25 10:06 40 MG Acetaminophen 650 mg Q6HP PRN PO 02/13/25 13:15 Morphine Sulfate 2 mg Q4HPRN PRN IV 02/13/25 13:30 Ceftriaxone Sodium 50 ml @ 100 mls/hr DAILY@09 IV 02/14/25 09:00 02/15/25 10:02 100 MLS/HR Metronidazole 100 ml @ 100 mls/hr Q8HR IV 02/13/25 22:00 02/15/25 05:26 100 MLS/HR Pantoprazole Sodium 40 mg DAILY IV 02/16/25 10:00 Sodium Chloride 1,000 ml @ 75 mls/hr [id number] IV 02/15/25 14:00 02/15/25 14:00 75 MLS/HR laboratory and microbiology Laboratory Tests 02/15/25 14:58 02/14/25 04:59 Test 02/15/25 14:58 Range/Units Serum Glucose 111 H 74-106 mg/dL Microbiology Date/Time Source Procedure Growth Status 02/13/25 10:02 Blood Blood Culture - Preliminary NO GROWTH AFTER 48 HOURS OF INCUBATION. Resulted NASH PÉREZ Feb 15, 2025 16:12
--- NOTE | 2025-02-15 16:13 | DVHCONRES ---
Date Seen: Feb 15, 2025 Resident Creating Document: JONATHAN ComerNASH RESIDENT History of Present Illness 55-year-old [place] woman with no known chronic medical conditions, poor historian, presented from home for evaluation of abdominal pain associated with nausea and vomiting. Per limited history, symptoms started around the , with left lower quadrant abdominal pain accompanied by nausea and vomiting. She denies fever. No prior similar episodes documented. She was initially considered for discharge, however GI was consulted due to intractable N/V PMHx No known chronic medical conditions. PSHx Cholecystectomy. Home Medications Nitrofurantoin. Allergies No known drug allergies. Social History Lives at home. Denies tobacco use. Denies recreational drug use. Reports occasional alcohol use for pleasure. ROS Negative except as noted in HPI. Allergies: Coded Allergies: NO KNOWN ALLERGIES (Unverified , 05/25/21) Home Meds Active Scripts Nitrofurantoin Monohydrate Mac (Macrobid) 100 Mg Cap, 100 MG PO BID for 7 Days, #21 CAP Prov:KATIE WASHINGTON MD 05/25/21 Current Medications Current Medications Medications (Trade) Dose Ordered Sig/Kenisha Route PRN Reason Start Time Stop Time Status Last Admin Pantoprazole Sodium (Protonix) 40 mg DAILY IV 02/16/25 10:00 Sodium Chloride 1,000 ml @ 75 mls/hr [id number] IV 02/15/25 14:00 02/15/25 14:00 Vital Signs Vital Signs Date Time Temp Pulse Resp B/P (MAP) Pulse Ox O2 Delivery O2 Flow Rate FiO2 02/15/25 13:00 97.9 64 16 115/74 (88) 96 97.9 02/15/25 08:00 Room Air* 0 21 Physical Exam 55-year-old [place] woman with no known chronic medical conditions, poor historian with language barrier, presented from home for evaluation of abdominal pain associated with nausea and vomiting. Per limited history, symptoms started around the , with left lower quadrant abdominal pain accompanied by nausea and vomiting. She denies fever. No prior similar episodes documented. She was initially considered for discharge, however GI was consulted after CT findings. Case discussed with Dr. Tai. Patient remains hemodynamically stable. PMHx No known chronic medical conditions. PSHx Cholecystectomy. Home Medications Nitrofurantoin. Allergies No known drug allergies. Social History Lives at home. Denies tobacco use. Denies recreational drug use. Reports occasional alcohol use for pleasure. ROS Negative except as noted in HPI. Labs/Diagnostic Data Labs Test 02/15/25 14:58 02/14/25 04:59 02/13/25 18:00 02/13/25 14:43 Range/Units Erythrocyte Sedimentation Rate 10 0-20 mm/hr Sodium Level 145 136-145 mmol/L Potassium Level 3.7 3.5-5.1 mmol/L Chloride Level 104 98-107 mmol/L Carbon Dioxide Level 30 20-31 mmol/L Anion Gap 11 5-15 Blood Urea Nitrogen 8 L 9-23 mg/dL Creatinine 0.84 0.550-1.02 mg/dL Glomerular Filtration Rate Calc 82 >90 mL/min BUN/Creatinine Ratio 9.5 L 10.0-20.0 Serum Glucose 111 H 74-106 mg/dL Calcium Level 8.9 8.7-10.4 mg/dL C-Reactive Protein High Sensitivity 0.04 <1.0 mg/dL Carcinoembryonic Antigen < 0.50 <=5.0 ng/mL White Blood Count 6.9 # 4.4-10.8 10^3/uL Red Blood Count 4.10 4.0-5.20 10^6/uL Hemoglobin 12.4 12.2-16.2 g/dL Hematocrit 37.0 # 36.0-46.0 % Mean Corpuscular Volume 90.1 80.0-100.0 fL Mean Corpuscular Hemoglobin 30.2 28.0-32.0 pg Mean Corpuscular Hemoglobin Concent 33.5 32.0-36.0 g/dL Red Cell Distribution Width 12.7 11.8-14.3 % Platelet Count 220 140-450 10^3/uL Mean Platelet Volume 8.1 6.9-10.8 fL Neutrophils (%) (Auto) 64.1 37.0-80.0 % Lymphocytes (%) (Auto) 27.0 10.0-50.0 % Monocytes (%) (Auto) 8.2 0.0-12.0 % Eosinophils (%) (Auto) 0.3 0.0-7.0 % Basophils (%) (Auto) 0.4 0.0-2.0 % Neutrophils # (Auto) 4.4 1.6-8.6 10 ^3/uL Lymphocytes # (Auto) 1.9 0.4-5.4 10 ^3/uL Monocytes # (Auto) 0.6 0-1.3 10 ^3/uL Eosinophils # (Auto) 0 0-0.8 10 ^3/uL Basophils # (Auto) 0 0-0.2 10 ^3/uL Nucleated Red Blood Cells 0.1 % Total Bilirubin 1.3 H 0.2-1.0 mg/dL Aspartate Amino Transferase (AST) 21 13-40 U/L Alanine Aminotransferase (ALT) 24 7-40 U/L Alkaline Phosphatase 79 46-116 U/L Total Protein 6.1 5.7-8.2 g/dL Albumin 3.5 3.2-4.8 g/dL Urine Color Light-yellow Yellow Urine Clarity Clear Clear Urine pH 6.5 5.0-9.0 Urine Specific [place] 1.044 H 1.001-1.035 Urine Protein Negative Negative Urine Ketones 1+ H Negative Urine Blood Negative Negative /uL Urine Nitrite Negative Negative Urine Bilirubin Negative Negative Urine Urobilinogen Normal Negative mg/dL Urine Leukocyte Esterase Negative Negative /uL Urine RBC 3 0 - 4 /hpf Urine Microscopic WBC 1 0-5 /HPF Urine Squamous Epithelial Cells Few <5 /hpf Urine Bacteria None seen None Seen /hpf Urine Glucose Normal Normal mg/dL Troponin I High Sensitivity < 3 L </=34 ng/L Test 02/13/25 09:49 Range/Units Lactic Acid Level 1.7 0.4-2.0 mmol/L Lipase 32 12-53 U/L Microbiology Date/Time Source Procedure Growth Status 02/13/25 10:02 Blood Blood Culture - Preliminary NO GROWTH AFTER 48 HOURS OF INCUBATION. Resulted Assessment Intractable vomit Acute colitis Dilated common bile duct status post cholecystectomy Mild hyperbilirubinemia Status post cholecystectomy Plan Diet: Keep NPO after midnight, advance as tolerated if symptoms improve and no procedure will be done BM regimen: Monitor bowel movements, avoid aggressive laxatives at this time. Antibiotics: She is on ceftriaxone and metronidazole due to possible colitis , normal CBC, and mild imaging findings Procedures: GI consulted; EGD to be considered tomorrow if symptoms persist or worsen. Supportive care: Antiemetics as needed (ondansetron). Disposition: Monitor overnight, anticipate DESTINY tomorrow pending clinical improvement Case discussed with Dr Tai Plan discussed with: Patient, Other (rn) NASH PÉREZ RESIDENT Feb 15, 2025 16:13
[2025-02-16 01:00] VITALS: BP 132/79; PULSE 57; RESP 17; TEMP 98; O2SAT 98
[2025-02-16 05:00] VITALS: BP 131/80; PULSE 56; RESP 17; TEMP 98.2; O2SAT 96
[2025-02-16 08:00] VITALS: PULSE 57; RESP 16; O2SAT 98
[2025-02-16 09:06] VITALS: BP 125/79; PULSE 57; RESP 16; TEMP 98.1; O2SAT 98
[2025-02-16] MEDS ORDERED: MECL1TAB42 PO (09:58)
[2025-02-16] MEDS ORDERED: PANT40TA2 PO (09:58)
[2025-02-16] MEDS ORDERED: PANTOPRAZOLE 40 MG/10 ML VIAL INJ IV SCH (10:00)
--- NOTE | 2025-02-16 10:00 | DVHPN2 ---
Subjective Patient states abdominal pain has improved. Reviewed: Care Plan, H&P, Labs, Medications, Previous Orders Changes from previous H/P or p: No Changes General: Per HPI Eyes: No Pain, No Vision change, No Conjunctivae inflammation, No Eyelid inflammation, No Other, No Redness ENT: No Ear pain, No Ear discharge, No Nose pain, No Nose discharge, No Nose congestion, No Mouth pain, No Mouth swelling, No Throat pain, No Throat swelling, No Other Cardiovascular: No Chest Pain, No Palpitations, No Orthopnea, No Paroxysmal Noc. Dyspnea, No Edema, No Lt Headedness, No Other Respiratory: No Cough, No Dry, No Shortness of breath, No SOB with excertion, No Wheezing, No Hemoptysis, No Pleuritic Pain, No Sputum, No Other Gastrointestinal: Nausea, Vomiting, Abdominal Pain; No Diarrhea, No Constipation, No Melena, No Hematochezia, No Other Genitourinary: No Dysuria, No Frequency, No Incontinence, No Hematuria, No Retention, No Other Musculoskeletal: No other, No neck pain, No shoulder pain, No arm pain, No back pain, No hand pain, No leg pain, No foot pain Objective Vitals Vital Signs Date Time Temp Pulse Resp B/P (MAP) Pulse Ox O2 Delivery O2 Flow Rate FiO2 02/16/25 09:06 98.1 57 16 125/79 (94) 98 98.1 02/15/25 20:00 Room Air* 0 21 Intake/Output Intake and Output 02/16/25 07:00 Intake Total 3225 ml Output Total 2 ml Balance 3223 ml Intake Oral 1600 ml IV Total 1625 ml Output Urine Total 2 ml # Voids 5 # Bowel Movements 1 General Appearance: Alert, Oriented X3, Cooperative, mild distress HEENT: Atraumatic, PERRLA Lungs: Clear to auscultation, Normal air movement Cardiovascular: Normal S1, Normal S2 Abdomen: Normal bowel sounds, Soft, No tenderness, No hepatospenomegaly, No masses Genitourinary: No Apparent Abnormalities Back: Flank Tenderness, Midline Tenderness, Spinal Abnormalities Musculoskeletal: Normal sensory function, Normal motor function Extremities: No clubbing, No cyanosis Skin: Dry, Intact Psych/Mental Status: Mental status NL, Mood NL Medications Current Medications Medications Dose Ordered Sig/Kenisha Route Start Time Stop Time Status Last Admin Dose Admin Acetaminophen/ Hydrocodone Bitart 1 tab Q4HP PRN PO 02/13/25 13:15 02/15/25 19:46 1 TAB Ondansetron HCl 4 mg Q4HP PRN IV 02/13/25 13:15 Hold 02/15/25 14:53 4 MG Enoxaparin Sodium 40 mg DAILY SC 02/14/25 10:00 02/15/25 10:06 40 MG Acetaminophen 650 mg Q6HP PRN PO 02/13/25 13:15 Morphine Sulfate 2 mg Q4HPRN PRN IV 02/13/25 13:30 Ceftriaxone Sodium 50 ml @ 100 mls/hr DAILY@09 IV 02/14/25 09:00 02/16/25 09:10 100 MLS/HR Metronidazole 100 ml @ 100 mls/hr Q8HR IV 02/13/25 22:00 02/16/25 05:22 100 MLS/HR Pantoprazole Sodium 40 mg DAILY IV 02/16/25 10:00 Sodium Chloride 1,000 ml @ 75 mls/hr [id number] IV 02/15/25 14:00 02/16/25 03:20 75 MLS/HR Ondansetron HCl 4 mg Q4HPRN PRN IV 02/15/25 20:00 02/15/25 21:58 4 MG Laboratory Results Laboratory Tests 02/14/25 04:59 02/15/25 14:58 Chemistry Test 02/15/25 14:58 Calcium Level 8.9 mg/dL (8.7-10.4) Urinalysis Test 02/13/25 18:00 Urine Color Light-yellow (Yellow) Urine Clarity Clear (Clear) Urine pH 6.5 (5.0-9.0) Urine Specific [place] 1.044 (1.001-1.035) Urine Protein Negative (Negative) Urine Ketones 1+ (Negative) H Urine Blood Negative /uL (Negative) Urine Nitrite Negative (Negative) Urine Bilirubin Negative (Negative) Urine Urobilinogen Normal mg/dL (Negative) Urine Leukocyte Esterase Negative /uL (Negative) Urine RBC 3 /hpf (0 - 4) Urine Microscopic WBC 1 /HPF (0-5) Urine Squamous Epithelial Cells Few /hpf (<5) Urine Bacteria None seen /hpf (None Seen) Urine Glucose Normal mg/dL (Normal) Microbiology Microbiology Date/Time Source Procedure Growth Status 02/13/25 10:02 Blood Blood Culture - Preliminary NO GROWTH AFTER 48 HOURS OF INCUBATION. Resulted Labs and/or images reviewed: Labs reviewed by me, Image(s) reviewed by me Assessment/Plan Assessment/Plan Impression: -acute colitis -intractable nausea and vomiting Plan: Dc held yesterday due to dizziness and N/V -symptoms resolved. advance diet -continue IV hydration -potassium replacement -continue IV antibiotic therapy: Rocephin, Flagyl -DC today with protonix and meclizine Total time spent with patient discussing and formulating plan of care: 35 minutes. This medical document was created using an electronic medical record system with [employer] dictation system. Although this document has been carefully reviewed, there may still be some phonetic and typographical errors. These areas are purely typographical due to imperfections of the software programs, and do not reflect any compromise in the patient's medical care. Plan discussed with: Patient, Other (RN) My Orders Orders - IVAN NORMAN NP Procedure Category Date Status Time * Gi D[facility] Irrigation Teacher CONS 02/15/25 Transmitted 13:54 Pantoprazole PHA 02/16/25 In Process (Protonix) 10:00 Sodium Chloride 0.9% PHA 02/15/25 In Process 14:00 Communication Order ORDERS 02/15/25 Transmitted 13:54 Regular Diet DIET 02/16/25 Transmitted Lunch Discharge DISCHARGE 02/16/25 Transmitted 09:50 Date of Service: Feb 16, 2025 Billing Provider: IVAN NORMAN NP Common Visit Codes: [id number] INP/OBS CARE(HIGH) IVAN NORMAN NP Feb 16, 2025 10:00
[2025-02-16 12:53] VITALS: BP 122/69; PULSE 61; RESP 16; TEMP 98.1; O2SAT 99
[2025-02-16 14:01] VITALS: BP 122/69; PULSE 61; RESP 16; TEMP 98.2; O2SAT 99
--- NOTE | 2025-02-16 14:29 | DVHPN2 ---
Progress Note Date Seen: Feb 16, 2025 Resident Creating Document: NASH PÉREZ RESIDENT Has the PT tested + for MRSA If YES, has PT been informed?: No Medical Necessity Reason Pt with a Central, PICC or Fol: No Subjective Review of Systems 55-year-old [place] woman with no known chronic medical conditions, poor historian, presented from home for evaluation of abdominal pain associated with nausea and vomiting. Per limited history, symptoms started around the 13th, with left lower quadrant abdominal pain accompanied by nausea and vomiting. She denies fever. No prior similar episodes documented. She was initially considered for discharge, however GI was consulted due to intractable N/V PMHx No known chronic medical conditions. PSHx Cholecystectomy. 02/16/25: no abdominal pain, no nausea, tolerating diet, patient is gonna be DC Objective vital signs Vital Sign Date Time Temp Pulse Resp B/P (MAP) Pulse Ox O2 Delivery O2 Flow Rate FiO2 02/16/25 14:01 98.2 61 16 122/69 (86) 99 98.2 02/16/25 08:00 Room Air* 0 21 Total Intake and Output 02/15/25 02/15/25 02/16/25 15:00 23:00 07:00 Intake Total 50 ml 1675 ml 1500 ml Output Total 2 ml Balance 50 ml 1675 ml 1498 ml medications Current Medications Medications Dose Ordered Sig/Kenisha Route Start Time Stop Time Status Last Admin Dose Admin Acetaminophen/ Hydrocodone Bitart 1 tab Q4HP PRN PO 02/13/25 13:15 02/15/25 19:46 1 TAB Ondansetron HCl 4 mg Q4HP PRN IV 02/13/25 13:15 Hold 02/15/25 14:53 4 MG Enoxaparin Sodium 40 mg DAILY SC 02/14/25 10:00 02/15/25 10:06 40 MG Acetaminophen 650 mg Q6HP PRN PO 02/13/25 13:15 Morphine Sulfate 2 mg Q4HPRN PRN IV 02/13/25 13:30 Ceftriaxone Sodium 50 ml @ 100 mls/hr DAILY@09 IV 02/14/25 09:00 02/16/25 09:10 100 MLS/HR Metronidazole 100 ml @ 100 mls/hr Q8HR IV 02/13/25 22:00 02/16/25 05:22 100 MLS/HR Pantoprazole Sodium 40 mg DAILY IV 02/16/25 10:00 Sodium Chloride 1,000 ml @ 75 mls/hr [id number] IV 02/15/25 14:00 02/16/25 03:20 75 MLS/HR Ondansetron HCl 4 mg Q4HPRN PRN IV 02/15/25 20:00 02/15/25 21:58 4 MG Examination General: Alert and Oriented x3. No acute distress. Well-nourished. Eyes: EOMI. Anicteric. HENT: Moist mucous membranes. Lungs: Clear to auscultation bilaterally. No accessory muscle use. Cardiovascular: Regular rate and rhythm. No murmur. No JVD. Abdomen: Soft, non-tender and non-distended. No palpable masses. Extremities: No edema. Non-tender. Skin: No rashes or lesions. Warm. Neurologic: No focal neurological deficits. CN II-XII grossly intact, but not individually tested. Psychiatric: Cooperative. Appropriate mood and affect. laboratory and microbiology Laboratory Tests 02/15/25 14:58 02/14/25 04:59 Test 02/15/25 14:58 Range/Units Serum Glucose 111 H 74-106 mg/dL Microbiology Date/Time Source Procedure Growth Status 02/13/25 10:02 Blood Blood Culture - Preliminary NO GROWTH AFTER 72 HOURS OF INCUBATION. Resulted Problem List/Assessment/Plan Problem List/Assessment/Plan Intractable vomit resolved Acute colitis Dilated common bile duct status post cholecystectomy Mild hyperbilirubinemia Status post cholecystectomy Plan Diet:Clear liquid diet BM regimen: Monitor bowel movements, avoid aggressive laxatives at this time. She was DC on meclizine and protonix Procedures:No need of EGD Case discussed with Dr Tai Plan discussed with: Patient, Other (rn) My Orders My Orders Orders - NASH PÉREZ Procedure Category Date Status Time Ondansetron Hcl PHA 02/15/25 In Process (Zofran) 20:00 Npo After Midnight LORY 02/15/25 In Process 20:00 NASH PÉREZ RESIDENT Feb 16, 2025 14:29
== END 2025-02-16 14:15 | disposition home or self-care (01) | DRG 249 ==
LOC: ER 08:20 → EDBD 08:20 → OVERFLOW 13:13 → CENTRAL 16:11
PROVIDERS: ADMIT Nurse Practitioner Acute Care; ATTEND Nurse Practitioner Acute Care
DX: K52.9 Noninfective gastroenteritis and colitis, unspecified (principal); K83.8 Other specified diseases of biliary tract; K75.9 Inflammatory liver disease, unspecified; E80.6 Other disorders of bilirubin metabolism; Z90.49 Acquired absence of other specified parts of digestive tract
CPT/HCPCS: 36415; 71045; 74177; 80048; 80053; 81001; 82378; 83605; 83690; 84484; 85025; 85652; 86141; 87040; 93005; 96365; 99291; G0378; J2405; J3490